=== PATIENT | male | born 1960 | race Caucasian/White ===

== ENCOUNTER 2022-03-26 20:15 | Emergency (ER) | payer MEDICARE ==
[~2022-03-26] VITALS: Ht 165.1 cm; Wt 90.7 kg
[2022-03-26] MEDS ORDERED: CEFDINIR300 MG PO (22:32)
[2022-03-26] MEDS ORDERED: BENZONATATE100 MG PO (22:32)
== END 2022-03-26 22:35 | disposition home or self-care (01) ==
LOC: ER 20:42
DX: R05.9 Cough, unspecified (principal); J02.9 Acute pharyngitis, unspecified; J06.9 Acute upper respiratory infection, unspecified; Z20.822 Contact with and (suspected) exposure to COVID-19; F17.210 Nicotine dependence, cigarettes, uncomplicated
CPT/HCPCS: 71045; 83518; 87070; 99283; U0002

== ENCOUNTER 2025-03-07 15:51 | Emergency (ER) | payer MEDICARE, OTHER ==
[~2025-03-07] VITALS: Ht 167.6 cm; Wt 89.4 kg
[~2025-03-07 15:51] MED LIST: AMOX TR-K CLV1 EAC2 PO; BENZONATATE100 MG PO; CEFDINIR300 MG PO; ONDANSETRON ODT4 MG PO; ULTRAM 50MG50 MG PO
[2025-03-07 16:50] LABS: CORONAVIRUS COVID-19 AG NEGATIVE (NEGATIVE)
[2025-03-07] MEDS ORDERED: AMOX TR-K CLV1 EAC2 PO (17:02)
[2025-03-07] MEDS ORDERED: DOXYCYCLINE HY100 MG PO (17:02)
[2025-03-07 17:33] VITALS: PULSE 63; RESP 18; TEMP 98.6; O2SAT 99
== END 2025-03-07 17:39 | disposition home or self-care (01) ==
LOC: ER 15:55
DX: R05.9 Cough, unspecified (principal); J06.9 Acute upper respiratory infection, unspecified; I10 Essential (primary) hypertension; E11.9 Type 2 diabetes mellitus without complications; F41.9 Anxiety disorder, unspecified; Z11.52 Encounter for screening for COVID-19; Z96.653 Presence of artificial knee joint, bilateral
CPT/HCPCS: 71046; 99283